=== PATIENT | male | born 1995 ===

== ENCOUNTER 2016-07-24 19:17 | Emergency (ER) | payer OTHER ==
[2016-07-24 19:49] VITALS: BP 126/81; PULSE 88; RESP 16; TEMP 99.3; O2SAT 95
--- NOTE | 2016-07-24 20:40 | EDPHY ---
H & P Stated Complaint: sore throat x 2 days, fatigue Time Seen by Provider: 07/24/16 20:14 HPI/ROS: CHIEF COMPLAINT: Sore throat x1 day HISTORY OF PRESENT ILLNESS: 21-year-old immunocompetent male complaining of 1 day of fever, sore throat. No URI symptoms. No myalgias. No nuchal rigidity. No change in voice. No chest pain. No cough. No URI symptoms no rash. No testicular complaints. REVIEW OF SYSTEMS: A ten point review of systems was performed and is negative with the exception of the items mentioned in the HPI PAST MEDICAL & SURGICAL HISTORY: No pertinent medical or surgical history SOCIAL HISTORY: Student PHYSICAL EXAM (Prior to examination, patient consented to physical exam, hands were washed and my usual and customary physical exam procedures followed) 1) GENERAL: Well-developed, well-nourished, alert and oriented. Appears to be in no acute distress. 2) HEAD: Normocephalic, atraumatic 3) HEENT: Pupils equal, round, reactive to light bilaterally. Sclera anicteric. Oropharynx: Bilateral tonsils are symmetrical, enlarged, no pointing of the uvula, no hot potato voice. No Evidence of peritonsillar/ retropharyngeal abscess. Ears bilaterally with normal tympanic membranes. 4) NECK: Full range of motion, no meningeal signs. Positive submandibular adenopathy 5) LUNGS: Clear auscultation bilaterally, no wheezes, no rhonchi, no retractions. 6) HEART: Regular rate and rhythm, no murmur, no heave, no gallop. 7) ABDOMEN: No guarding, no rebound, no focal tenderness,, 8) MUSCULOSKELETAL: No peripheral edema or discoloration. 9) BACK: No CVA tenderness 10) SKIN: No rash, no petechiae. 11) Psychiatric: Patient is oriented X 3, there is no agitation. DIFFERENTIAL DIAGNOSIS: in no particular include but limited to meningitis, mononucleosis, strep pharyngitis, peritonsillar abscess - Personal History Current Tetanus/Diphtheria Vaccine: Unsure Current Tetanus Diphtheria and Acellular Pertussis (TDAP): Unsure - Medical/Surgical History Hx Asthma: No Hx Chronic Respiratory Disease: No Hx Diabetes: No Hx Cardiac Disease: No Hx Renal Disease: No Hx Cirrhosis: No Hx Alcoholism: No Hx HIV/AIDS: No Hx Splenectomy or Spleen Trauma: No Other PMH: healthy - Social History Smoking Status: Never smoked Constitutional: Initial Vital Signs Temperature (C) 37.4 C 07/24/16 19:47 Heart Rate 88 07/24/16 19:47 Respiratory Rate 16 07/24/16 19:47 Blood Pressure 126/81 H 07/24/16 19:47 O2 Sat (%) 95 07/24/16 19:47 O2 Delivery Mode Room Air Home Medications: Medication Instructions Recorded Penicillin V Potassium [Pen Vk] 500 mg PO Q6 10 Days 07/24/16 methylPREDNISolone [Medrol Dose 4 mg PO DAILY #1 ea 07/24/16 Dion] Medical Decision Making ED Course/Re-evaluation: High clinical suspicion for strep pharyngitis. Doubt peritonsillar orretropharyngeal abscess. Recommended empiric treatment. Recommended antibiotics and steroids. Queried about prior mental health history and/or adverse reaction to steroids and he denies. Usual and customary pharyngitis precautions provided. Recommend ENT follow-up - Data Points Laboratory Results: 07/24/16 07/24/16 Unknown 20:00 Group A Strep Screen NEGATIVE (NEGATIVE) Group A Strep DNA Pending Departure - Departure Disposition: Home, Routine, Self-Care Clinical Impression: Acute streptococcal pharyngitis Condition: Good Instructions: Strep Throat (ED) Additional Instructions: Return to the ER immediately if you cannot swallow, have drooling, fevers, neck stiffness, cannot open your jaw, or any other symptoms that concern you. Referrals: Alejandra De Anda MD [Medical Doctor] - 5-7 days, call for appt. (Dr. Alejandra De Anda is an ear nose throat doctor) Prescriptions: methylPREDNISolone [Medrol Dose Dion] 4 mg PO DAILY #1 ea Penicillin V Potassium [Pen Vk] 500 mg PO Q6 10 Days
== END 2016-07-24 21:00 | disposition home or self-care (01) ==
DX: J02.0 Streptococcal pharyngitis (principal)